=== PATIENT | female | born 1990 | race Two or more races ===

== ENCOUNTER → 2025-01-02 | Day surgery (SDC) | payer MEDICAID ==
[2024-12-27 11:22] LABS: Urine Protein, UAD Negative (Negative)
[2024-12-27 11:31] LABS: Hematocrit 41.7 % (36.0-46.0); Hemoglobin 13.9 g/dL (12.2-16.2); Mean Corpuscular Hemoglobin 27.9 pg (28.0-32.0); Mean Corpuscular Volume 84.0 fL (80.0-100.0); Nucleated Red Blood Cells % 0.2 %
[2024-12-27 11:36] LABS: INR 1.01 (0.9-1.15); Partial Thromboplastin Time 30.0 SEC (24.5-34.5); Prothrombin Time 10.7 sec (9.3-11.8)
[2024-12-27 11:58] LABS: Alkaline Phosphatase 93 U/L (46-116); Anion Gap 9 (5-15); BUN/Creatinine Ratio 14.3 (10.0-20.0); Blood Urea Nitrogen 14 mg/dL (9-23); Carbon Dioxide 29 mmol/L (20-31); Chloride 105 mmol/L (98-107); Glucose 91 mg/dL (74-106); Potassium 4.0 mmol/L (3.5-5.1); Sodium 143 mmol/L (136-145); Total Protein 8.0 g/dL (5.7-8.2)
[2024-12-27 11:59] LABS: Alanine Aminotransferase 50 U/L (7-40); Albumin 5.2 g/dL (3.2-4.8); Bilirubin, Total 0.4 mg/dL (0.2-1.0); Calcium 10.7 mg/dL (8.7-10.4)
[~2025-01-02] VITALS: Ht 165.1 cm; Wt 92.5 kg
[~2025-01-02] MED LIST: GLYCOPYRROLATE 0.2 MG/ML 1ML VIAL ONE; LIDOCAINE 2% (LOCAL ANESTH.) PF 5ml SDV ONE; ONDANSETRON HCL 4 MG/2 ML VIAL ONE; PROPOFOL 10 MG/ML 20 ML IV ONE; ceFAZolin 2 GM/D5W50ml 50 ML IV ONE
[2025-01-02] MEDS: GABAPENTIN 300 MG CAP PO ONE (13:38)
[2025-01-02] MEDS: CELECOXIB 100 MG CAP PO ONE (13:38)
[2025-01-02] MEDS: ACETAMINOPHEN IV 1000 MG/100ML (10MG/ML) IV ONE (13:38)
[2025-01-02] MEDS: BUPIVACAINE 0.5% INJ 50ML VIAL IJ ONE (14:03)
[2025-01-02 14:16] VITALS: PULSE 97; RESP 18; TEMP 97.1; O2SAT 97
--- NOTE | 2025-01-02 14:27 | DVHOP2 ---
Operative Report - 2 Report Details Date: 01/02/25 Preop Diagnosis: 1. Right foot plantar fasciitis 2. Right foot bone spur 3. Right foot pain Postop Diagnosis: Same as preop Surgeon: Beatrice Funk MD Anesthesiologist: See anesthesia Anesthesia: Mac Consent: The patient was informed of the risks and benefits of the procedure. These include but are not limited to complications of anesthesia, postoperative infection, incomplete relief of symptoms, recurrence of symptoms, damage to blood vessels, nerves and tendons, deep venous thrombosis, pulmonary embolism and possible need for repeat surgery in the future. Complications: None Estimated Blood Loss: Minimal Fluids: See anesthesia Findings: Consistent with diagnosis Indications for Surgery: Worsening right foot pain Name of Procedure Performed 1. Right foot plantar fasciotomy with tenex (59211) 2 Right foot heel spur excision (50346) Procedure Details Procedure Details: PRE-PROCEDURE INFORMATION: In the pre-op holding area, the extremity to be operated on was clearly marked and the patient verified correct laterality of the marking. The patient was transferred to the OR table and placed in a supine position. A timeout was performed in which identification of the correct patient, procedure, location, and materials was done. The right foot and leg were prepped and draped in normal sterile fashion. The foot and leg were exsanguinated and the _ tourniquet was inflated to 250 mmHg. DESCRIPTION OF PROCEDURE: Attention was directed to the right medial aspect of the heel. Using a 15. Blade, a small stab incision was made. Using a hemostat the incision was deepened to the level of the plantar fascia and bone. Using a Tenex device, and ultrasound, the device was used to break up the scar tissue. Using a power rasp, the heel spur was removed in its entirety. After adequate debridement of the plantar fascia, it was noted on ultrasound that the thickness of the plantar fascia had improved. The incision was closed with a 4-0 nylon. All surgical wounds were irrigated copiously with saline and closed in layers with the aforementioned suture material. A dry sterile dressing was placed on the surgical extremity. The patient was placed in a cam boot POSTOPERATIVE INFORMATION: The patient tolerated the above noted procedure and anesthesia well and was transferred to the PACU with vital signs stable, and vascular status intact with capillary refill intact to all digits. Postoperative instructions reviewed in detail with the patient with written instructions provided. Patient will return to clinic in approximately 10-14 days for first postoperative visit. Patient has the number of the clinic and was instructed to call prior to that time should any problems, questions, or concerns arise. Condition Good Disposition Home BEATRICE FUNK DPM Jan 02, 2025 14:27
[2025-01-02 14:58] VITALS: BP 126/83; PULSE 74; RESP 16; O2SAT 95
== END | disposition home or self-care (01) ==
LOC: SUR 11:34
PROVIDERS: ATTEND Podiatrist
DX: M72.2 Plantar fascial fibromatosis (principal); M77.8 Other enthesopathies, not elsewhere classified; Z90.710 Acquired absence of both cervix and uterus; Z98.890 Other specified postprocedural states
CPT/HCPCS: 28008; 28119; 36415; 80053; 81001; 84702; 85025; 85610; 85730; J0690; J1100; J2003; J2405; J2704; J3490; J0131